=== PATIENT | male | born 1950 | race Caucasian/White ===

== ENCOUNTER 2017-03-01 13:04 | Inpatient (IN) | payer OTHER ==
[2017-03-01] MEDS ORDERED: NS 500 ML IV ONE (13:32)
[2017-03-01] MEDS ORDERED: ASPIRIN 81 MG CHEWABLE TAB PO ONE (13:32)
--- NOTE | 2017-03-01 13:35 | EDPHY ---
H & P Stated Complaint: 2 wks cough/fever/today noted mid sternal chest tightness Time Seen by Provider: 03/01/17 13:13 HPI/ROS: CHIEF COMPLAINT: Chest tightness HISTORY OF PRESENT ILLNESS: Patient is a 67-year-old healthy man who comes to the emergency department complaining of tightness in his chest for the last 8 hr. He states that he began this morning when he woke up. He has had a cough for the last 15 days and a fever that he got right before Master. He states that the symptoms have gradually improved. His cough is nonproductive. He does not feel short of breath. However today he noticed some achiness in his chest particularly when he takes a deep breath. He did fly to [place] and back around [place]. He has not had any leg pain or swelling. He does not smoke. He denies any cardiac history. No lightheadedness or dizziness. REVIEW OF SYSTEMS: Constitutional: denies: chills, fever, recent illness, recent injury EENTM: denies: blurred vision, double vision, nose congestion Respiratory: denies: cough, shortness of breath Cardiac: See HPI Gastrointestinal/Abdominal: denies: abdominal pain, diarrhea, nausea, vomiting, blood streaked stools Genitourinary: denies: dysuria, frequency, hematuria, pain Musculoskeletal: denies: joint pain, muscle pain Skin: denies: lesions, rash, jaundice, bruising Neurological: denies: headache, numbness, paresthesia, tingling, dizziness, weakness Hematologic/Lymphatic: denies: blood clots, easy bleeding, easy bruising Immunologic/allergic: denies: HIV/AIDS, transplant EXAM: GENERAL: Well-appearing, well-nourished and in no acute distress. HEAD: Atraumatic, normocephalic. EYES: Pupils equal round and reactive to light, extraocular movements intact, sclera anicteric, conjunctiva are normal. ENT: TMs normal, nares patent, oropharynx clear without exudates. Moist mucous membranes. NECK: Normal range of motion, supple without lymphadenopathy or JVD. LUNGS: Breath sounds clear to auscultation bilaterally and equal. No wheezes rales or rhonchi. HEART: Regular rate and rhythm without murmurs, rubs or gallops. ABDOMEN: Soft, nontender, normoactive bowel sounds. No guarding, no rebound. No masses appreciated. BACK: No CVA tenderness, no spinal tenderness, step-offs or deformities EXTREMITIES: Normal range of motion, no pitting or edema. No clubbing or cyanosis. NEUROLOGICAL: Cranial nerves II through XII grossly intact. Normal speech, normal gait. 5/5 strength, normal movement in all extremities, normal sensation PSYCH: Normal mood, normal affect. SKIN: Warm, dry, normal turgor, no visible rashes or lesions. Source: Patient Exam Limitations: No limitations - Personal History Current Tetanus/Diphtheria Vaccine: Unsure - Medical/Surgical History Hx Asthma: No Hx Chronic Respiratory Disease: No Hx Diabetes: No Hx Cardiac Disease: No Hx Renal Disease: No Hx Cirrhosis: No Hx Alcoholism: No Hx HIV/AIDS: No Hx Splenectomy or Spleen Trauma: No Other PMH: pericarditits, kidney stones. - Family History Significant Family History: No pertinent family hx - Social History Smoking Status: Never smoked Alcohol Use: Sober Drug Use: None Constitutional: Initial Vital Signs Temperature (C) 36.5 C 03/01/17 13:08 Heart Rate 74 03/01/17 13:08 Respiratory Rate 17 03/01/17 13:08 Blood Pressure 148/99 H 03/01/17 13:08 O2 Sat (%) 97 03/01/17 13:08 O2 Delivery Mode Room Air Allergies/Adverse Reactions: No Known Allergies Allergy (Verified 03/01/17 13:08) Home Medications: Medication Instructions Recorded Aspirin [Aspirin 325 mg (*)] 650 mg PO Q2D 03/01/17 Ibuprofen [Motrin (*)] 400 mg PO Q2D 03/01/17 Medical Decision Making - Diagnostics EKG Interpretation: An EKG obtained and was read and documented in trace view. Please see trace view for full reading and report. Nonspecific repolarization abnormality, no previous for comparison A repeat EKG obtained and was read and documented in trace view. Please see trace view for full reading and report. Large QRS with repolarization abnormality resolved Imaging Results: Imaging Impressions Chest X-Ray 03/01/17 13:32 Impression: 1. Suspect right lower lobe pneumonia. 2. Recommend follow up until clear. Findings and recommendations discussed with Emergency Department physician, Mk Snyder at 1454 hour, 03/01/2017. Final report concurs with initial preliminary interpretation. Imaging: Discussed imaging studies w/ survey manager Radiologist ED Course/Re-evaluation: 2:46 p.m. the patient has a history of pericarditis. He states that this feels somewhat similar to that time. I recommended admission for serial troponins echo etc. The patient agrees. He is currently feeling better. I discussed the case with Dr. Zita Armstrong who will admit to the PCU. Radiology he states that the patient might have an early right lower lobe pneumonia. This does not fit with his improving cough and resolving fever. We will observe. Differential Diagnosis: Partial list of the Differential diagnosis considered include but were not limited to; acute coronary disease, costochondritis, pericarditis and although unlikely based on the history and physical exam, I also considered PE, pneumonia. I discussed these differential diagnoses and the plan with the patient as well as the usual and expected course. The patient understands that the diagnosis is provisional and that in medicine we are not always correct and that further workup is often warranted. Usual and customary warnings were given. All of the patient's questions were answered. The patient was instructed to return to the emergency department should the symptoms at all worsen or return, otherwise to followup with the physician as we discussed. - Data Points Laboratory Results: Laboratory Results 03/01/17 13:41 03/01/17 13:41 03/01/17 03/01/17 03/01/17 13:41 13:41 13:41 WBC 8.03 10^3/uL 10^3/uL (3.80-9.50) RBC 4.52 10^6/uL 10^6/uL (4.40-6.38) Hgb 14.0 g/dL g/dL (13.7-17.5) Hct 40.9 % % (40.0-51.0) MCV 90.5 fL fL (81.5-99.8) MCH 31.0 pg pg (27.9-34.1) MCHC 34.2 g/dL g/dL (32.4-36.7) RDW 11.9 % % (11.5-15.2) Plt Count 266 10^3/uL 10^3/uL (150-400) MPV 9.4 fL fL (8.7-11.7) Neut % (Auto) 83.4 % H % (39.3-74.2) Lymph % (Auto) 10.3 % L % (15.0-45.0) [place] % (Auto) 5.9 % % (4.5-13.0) Eos % (Auto) 0.1 % L % (0.6-7.6) Baso % (Auto) 0.1 % L % (0.3-1.7) Nucleat RBC Rel Count 0.0 % % (0.0-0.2) Absolute Neuts (auto) 6.69 10^3/uL H 10^3/uL (1.70-6.50) Absolute Lymphs (auto) 0.83 10^3/uL L 10^3/uL (1.00-3.00) Absolute Monos (auto) 0.47 10^3/uL 10^3/uL (0.30-0.80) Absolute Eos (auto) 0.01 10^3/uL L 10^3/uL (0.03-0.40) Absolute Basos (auto) 0.01 10^3/uL L 10^3/uL (0.02-0.10) Absolute Nucleated RBC 0.00 10^3/uL 10^3/uL (0-0.01) Immature Gran % 0.2 % % (0.0-1.1) Immature Gran # 0.02 10^3/uL 10^3/uL (0.00-0.10) PT 14.8 SEC SEC (12.0-15.0) INR 1.14 (0.83-1.16) APTT 28.2 SEC SEC (23.0-38.0) D-Dimer 0.31 ug/mLFEU ug/mLFEU (0.00-0.50) Sodium 140 mEq/L mEq/L (134-144) Potassium 4.2 mEq/L mEq/L (3.5-5.2) Chloride 104 mEq/L mEq/L (97-110) Carbon Dioxide 25 mEq/l mEq/l (22-31) Anion Gap 11 mEq/L mEq/L (8-16) BUN 26 mg/dL H mg/dL (7-23) Creatinine 0.8 mg/dL mg/dL (0.7-1.3) Estimated GFR > 60 Glucose 164 mg/dL H mg/dL (70-100) Calcium 9.2 mg/dL mg/dL (8.5-10.4) Troponin I 0.066 ng/mL H ng/mL (0.000-0.034) Medications Given: Discontinued Medications Aspirin (Aspirin) 324 mg PO EDNOW ONE Stop: 03/01/17 13:33 Last Admin: 03/01/17 13:45 Dose: 324 mg Sodium Chloride (Ns) 500 mls @ 1,000 mls/hr IV EDNOW ONE PRN Reason: Protocol Stop: 03/01/17 14:01 Last Admin: 03/01/17 13:46 Dose: 500 mls Departure - Departure Disposition: [facility] Acute Clinical Impression: Chest pain in adult Condition: Fair
[2017-03-01] MEDS ORDERED: ASPIRIN 81 MG CHEWABLE TAB ONE (13:38)
[2017-03-01 13:51] LABS: PLATELET COUNT 266 10^3/uL (150-400)
--- NOTE | 2017-03-01 13:53 | CPEKG ---
Heart Rate: 71 RR Interval: 845 P-R Interval: 164 QRSD Interval: 94 QT Interval: 408 QTC Interval: 444 P [place]: 68 QRS [place]: 69 T Wave [place]: 28 EKG Severity - ABNORMAL ECG - EKG Impression: SINUS RHYTHM EKG Impression: NONSPECIFIC REPOL ABNORMALITY, DIFFUSE LEADS Electronically Signed By: Mk Snyder 01-Mar-2017 13:59:57
[2017-03-01 14:03] LABS: INR 1.14 (0.83-1.16); PROTIME(PATIENT) 14.8 SEC (12.0-15.0)
--- NOTE | 2017-03-01 14:35 | CPEKG ---
Heart Rate: 68 RR Interval: 882 P-R Interval: 156 QRSD Interval: 94 QT Interval: 416 QTC Interval: 443 P [place]: 57 QRS [place]: 58 T Wave [place]: 33 EKG Severity - NORMAL ECG - EKG Impression: SINUS RHYTHM Electronically Signed By: Mk Snyder 01-Mar-2017 15:52:33
[2017-03-01] MEDS ORDERED: ONDANSETRON 4 MG/2 ML VIAL IVP PRN (15:39)
[2017-03-01] MEDS ORDERED: ACETAMINOPHEN 325 MG TAB PO PRN (15:39)
[2017-03-01] MEDS ORDERED: ONDANSETRON DISINTEGRATING 4 MG TAB PO PRN (15:39)
--- NOTE | 2017-03-01 16:06 | GHP ---
[f rep st] HISTORY AND PHYSICAL DATE OF ADMISSION: 03/01/2017 CHIEF COMPLAINT: Chest pressure. HISTORY OF PRESENT ILLNESS: This is a 67-year-old male, who is quite healthy. He has had a 2-week h istory of an upper respiratory tract infection, mostly runny nose at this point. This morning, he de veloped some chest tightness that was pleuritic. It is not positional. It is not associated with sh ortness of breath, diaphoresis, or nausea. He was able to go climbing today without much problem, th ough he did not feel completely right. He has not had any decrease in exercise tolerance. He usuall y runs a couple of times a week, doing intervals as well as climbing pretty regularly. The patient has a history of pericarditis in 1989. He says that this feels similar to that. REVIEW OF SYSTEMS: A 10-point review of systems was obtained and other than stated was negative. PAST MEDICAL HISTORY: 1. Pericarditis. 2. Arthritis. 3. Kidney stones. MEDICATIONS: Reviewed. SOCIAL HISTORY: No smoking, quite active. FAMILY HISTORY: Mother with breast cancer, but no early cardiac disease. PHYSICAL EXAM: VITAL SIGNS: Afebrile, blood pressure 142/88, heart rate 68, oxygen saturation 97% o n room air. GENERAL: Patient is well developed, no apparent distress. HEENT: Nonicteric sclerae. Extraocular movements intact. Moist mucous membranes. NECK: Supple. No thyromegaly. LUNGS: Goo d effort. Clear to auscultation bilaterally. CARDIOVASCULAR: Regular rate and rhythm. No murmurs, rubs, gallops. ABDOMEN: Positive bowel sounds. Soft, nontender, nondistended. No hepatosplenomeg steven. EXTREMITIES: No clubbing, cyanosis, or edema. SKIN: Without rash. Warm, dry, intact. NEURO LOGIC: Alert and oriented x3. Moving all 4 extremities equally. PSYCHIATRIC: Normal affect. LABS: Initial EKG shows ST-segment depressions in the lateral leads. Chest x-ray personally reviewe d and interpreted, with suspicion of right lower lobe pneumonia. Troponin is elevated at 0.066. Inf luenza is still pending. ASSESSMENT: A 67-year-old male, presenting with a previous history of pericarditis presenting with c hest pain at the tail end of an upper respiratory tract infection. PLAN: 1. Chest pain with slightly elevated troponin. I think his symptoms are more consistent with perica rditis. He is actually quite healthy without any cardiac risk factors. He has not had decrease in e xercise tolerance. Plan will be to monitor him overnight. Will check serial troponin to make sure t hat they remain flat. I am going to start anti-inflammatories and colchicine. Will check an echocar diogram as well. 2. Questionable right lower lobe pneumonia. Patient is not having any cough. His lung exam is yuliet r. He has no elevated white blood cell count. I am going to hold off on antibiotics at this time. /[id number]/MODL
[2017-03-01] MEDS: IBUPROFEN 600 MG TAB PO SCH ×2 (17:46→22:30)
[2017-03-01] MEDS: COLCHICINE 0.6 MG CAP/TAB PO SCH (17:46)
--- NOTE | 2017-03-02 08:21 | CPEKG ---
Heart Rate: 64 RR Interval: 938 P-R Interval: 156 QRSD Interval: 90 QT Interval: 424 QTC Interval: 438 P [place]: 58 QRS [place]: 53 T Wave [place]: 27 EKG Severity - NORMAL ECG - EKG Impression: SINUS RHYTHM Electronically Signed By: Tyrell Ba 02-Mar-2017 16:18:47
[2017-03-02] MEDS: COLCHICINE 0.6 MG CAP/TAB PO SCH (09:01)
[2017-03-02] MEDS: IBUPROFEN 600 MG TAB PO SCH (09:01)
--- NOTE | 2017-03-02 11:27 | ASMTCASEMG ---
Living Arrangements What is your living Answers: Alone arrangement? Who do you live with? Type Of Residence What kind of residence do Answers: House you live in? Discharge Plan Comments Coordination Status Comments Notes: Pt is a 67 y/o man admitted for chest pain. Pt will most likely d/c independent when medically stable. No therapies ordered at this time. CM available for changes. Plan: Independent Date Signed: 03/02/2017 11:26 AM Electronically Signed By:BALDEV Leal
--- NOTE | 2017-03-02 12:02 | HOSPPROG ---
Hospitalist Progress Note Assessment/Plan: 67 yo M w minimal PMH here w CP, lateral ST depression NSTEMI: lateral ST depressions that have normalized alomg w reduction in CP no heparin given normalization of cp and wkg start asa cardiology to see echo ordered NPO now, ate at 11 follow trop to peak pericarditis: unlikely dc meds bradycardia: jilley 2/2 physical fitmess dispo: inpt proph: lmwh Subjective: case d/w jose smith, cardiology PA. no further CP Objective: Vital Signs Temp Pulse Resp BP Pulse Ox 36.7 C 58 L 16 144/84 H 96 03/02/17 07:25 03/02/17 07:25 03/02/17 07:25 03/02/17 07:25 03/02/17 07:25 03/01/17 03/02/17 03/03/17 05:59 05:59 05:59 Intake Total 1250 Balance 1250 PT 14.8 SEC (12.0-15.0) 03/01/17 13:41 INR 1.14 (0.83-1.16) 03/01/17 13:41 - Physical Exam Constitutional: no apparent distress, appears nourished Eyes: PERRL, anicteric sclera Ears, Nose, Mouth, Throat: moist mucous membranes, hearing normal Cardiovascular: regular rate and rhythym, no murmur, rub, or gallop, No systolic murmur Respiratory: no respiratory distress, no rales or rhonchi Gastrointestinal: normoactive bowel sounds, soft, non-tender abdomen Genitourinary: no bladder fullness, No garcia in urethra Skin: warm, normal color Musculoskeletal: full muscle strength, no muscle tenderness Neurologic: AAOx3 Psychiatric: interacting appropriately ICD10 Worksheet Patient Problems: Problems Problem Status Onset Chest pain in adult Acute
[2017-03-02] MEDS: ASPIRIN EC 325 MG TAB PO SCH (12:13)
--- NOTE | 2017-03-02 12:15 | ECHO ---
[email or web address] [address] [address] Main: [phone] Fax: [email or web address] Echocardiogram Name: DUYEN CARRANZA MR#: [id number] Study Date: 03/01/2017 Study Time: 03:53 PM Date of : 1950 Age: 67 year(s) Height: 175.3 cm (69 in.) Weight: 72.58 kg (160 lb.) BSA: 1.88 m2 Gender: Male Examination: Echo Indication: Question pericarditis Image Quality: Contrast: Requested by: Bob Armstrong BP: 164 mmHg/102 mmHg Heart Rate: Rhythm: Indication: Question pericarditis Procedure Staff Gum Dipper: Luzmaria Starks Physician: Kris Miguel Requesting Provider: Conclusions: Left Ventricle: Normal size left ventricle. Normal global systolic LV function. The ejection fraction is estimated to be 65-70 %. The right atrium is borderline dilated. Mild mitral valve regurgitation is present. Minimal aortic cusp calcification is noted. Mild tricuspid regurgitation is present. Measurements: Chambers Valvular Assessment AV/MV Valvular Assessment TV/PV Normal Normal Normal Name Value Range Name Value Range Name Value Range IVSd (2D): 0.5 cm (0.6 cm-1.1 AV Vmax: 1.21 m/s (1 m/s-1.7 cm) m/s) LVDd (2D): 5.9 cm (4.2 cm-5.9 AV maxP mmHg ( - ) cm) AV meanP mmHg ( - ) LVDs (2D): 3.6 cm (2.1 cm-4 MV E Vmax: 0.58 m/s ( - ) cm) MV A Vmax: 0.71 m/s ( - ) LVPWd (2D): 0.8 cm (0.6 cm-1 MV E/A: 0.82 ( - ) cm) EF Range: 65-70 % Continued Measurements: Chambers Valvular Assessment AV/MV Name Value Name Value LADs: 3.3 cm MV E/E' Septal: 10.50 LADs Lon.0 cm MV E/E' Lateral: 9.90 Patient: DUYEN CARRANZA Study Date: 03/01/2017 Page 1 of 2 03:53 PM LA Area: 14.3 cm2 Findings: Left Ventricle: Normal size left ventricle. No LV hypertrophy. Normal global systolic LV function. The ejection fraction is estimated to be 65-70 %. No regional wall motion abnormality. Right Ventricle: Normal size right ventricle. Left Atrium: The left atrium is normal in size. Right Atrium: The right atrium is borderline dilated. Mitral Valve: The mitral valve is normal in appearance and function. Mild mitral valve regurgitation is present. Aortic Valve: Minimal aortic cusp calcification is noted. Tricuspid Valve: The tricuspid valve is normal in appearance and function. Mild tricuspid regurgitation is present. Pulmonic Valve: Pulmonary valve not well visualized. Aorta: The aorta is normal. Pericardium: No pericardial effusion. (No Signature Object) Patient: DUYEN CARRANZA Study Date: 03/01/2017 Page 2 of 2 03:53 PM [id number]
[2017-03-02] MEDS ORDERED: diphenhydrAMINE 25 MG CAP PO ONE (13:01)
[2017-03-02] MEDS ORDERED: ASPIRIN EC 325 MG TAB PO ONE (13:01)
[2017-03-02] MEDS ORDERED: DIAZEPAM 5 MG TAB PO ONE (13:01)
[2017-03-02] MEDS ORDERED: ACETAMINOPHEN 325 MG TAB PO PRN (13:01)
[2017-03-02] MEDS ORDERED: TEMAZEPAM 15 MG CAP PO PRN (13:01)
[2017-03-02] MEDS ORDERED: FAMOTIDINE 20 MG TAB PO ONE (13:01)
[2017-03-02] MEDS ORDERED: NITROGLYCERIN 0.4 MG BTL SL PRN (13:01)
[2017-03-02] MEDS ORDERED: NS 1,000 ML IV SCH ×2 (13:15→16:15)
--- NOTE | 2017-03-02 13:56 | GCON ---
[f rep st] CONSULTATION CARDIOLOGY CONSULTATION DATE OF CONSULTATION: 03/02/2017 REASON FOR CONSULTATION: We were asked by Dr. Landry Bailey of [facility] to evaluate the new berry for his abnormal EKG, chest pain and elevated troponin worrisome for NSTEMI. HISTORY OF PRESENT ILLNESS: The patient is a 67-year-old male with a history of pericarditis in 1989 but otherwise healthy, who reports 16 days of antecedent upper respiratory infection symptoms most n otably sinus congestion. On day of admission, he noted a midsternal chest heaviness while at work at approximately 10 a.m. He describes it as mild to moderate in intensity without associated nausea, d iaphoresis, or dyspnea. At lunch time, he decided to go to the climbing gym for his typical work out . With his climbs, he noted that he would have significant worsening of his chest discomfort to mode rate to severe level. He therefore stopped exercise and presented to the emergency department for fu rther evaluation. At that time, he was found to have a minimally elevated troponin at 0.066. His EK G was abnormal with diffuse ST-T wave abnormalities. He was therefore admitted for further observati on. At time of our interview, patient reports that he is chest pain-free. He denies any other episodes o f chest discomfort recently. Other than his upper respiratory illness, he has not noted any other vi ral symptoms. He does describe noting slight worsening of his chest discomfort yesterday upon deep i nspiration. REVIEW OF SYSTEMS: A 10-point review of systems was obtained and is negative except for what is dict ated. PAST MEDICAL HISTORY: 1. Pericarditis. 2. Arthritis. 3. Kidney stones. 4. BPH. PAST SURGERIES: None. SOCIAL HISTORY: Patient reports 1 alcoholic beverage most nights of the week. He denies any signifi cant history of tobacco intake. At age 14, he had smoked for 6 months. He is . FAMILY HISTORY: Positive for breast cancer. PHYSICAL EXAMINATION: VITAL SIGNS: BP of 157/92, heart rate of 60, respirations 16, O2 saturation 9 6% on room air, temp of 98.1 degrees Fahrenheit. GENERAL: He is a very pleasant male in no apparent distress. HEENT: Normocephalic atraumatic. Eyes are without scleral icterus. NECK: Supple with no JVD. No carotid bruit. HEART: Regular rate and rhythm with no rubs, gallops, or murmurs. LUNGS : Clear to auscultation. ABDOMEN: Nontender with normoactive bowel sounds. : Without Storm pre sent. SKIN: Warm and dry. PSYCH: Normal mood and affect. NEURO: No focal deficits detected. LABORATORIES: BMP with sodium 140, potassium 4.2, chloride 104, CO2 25, BUN 26, creatinine 0.8, gluc ose 164, troponin 0.066, then 0.7, then 1.4. CBC with WBC 8.3, hemoglobin 14, hematocrit 40.9, platelet count of 266. A 12-lead ECG personally interpreted from 03/02/2017, shows sinus rhythm with mild inferolateral ST a bnormality, 03/01/2017 EKG from [address] depression. Telemetry reviewed and no arrhythmias were seen. 03/01/2017 echocardiogram shows EF of 65-70, dilated right atrium, mild MR, mild TR. IMPRESSION AND PLAN: The patient is a 67-year-old male with no significant past medical history who presents with episode of chest discomfort worrisome for non-ST elevation myocardial infarction. 1. Non-ST elevation myocardial infarction. He has elevated troponin. EKG changes and chest pain wo rrisome for non-ST elevation myocardial infarction. Patient's options were reviewed with him and he is amenable to cardiac catheterization for further evaluation. Risks, benefits, and alternatives rev iewed. 2. Elevated blood pressure. Likely he will need to be started on medical therapy for this. 3. Hyperglycemia. Hemoglobin A1c will be obtained. More recommendations to follow cardiac catheter ization. /[id number]/MODL
[2017-03-02 14:01] LABS: PLATELET COUNT 293 10^3/uL (150-400)
[2017-03-02 14:15] LABS: INR 1.06 (0.83-1.16)
[2017-03-02] MEDS ORDERED: MIDAZOLAM 2 MG/2 ML VIAL ONE (14:41)
[2017-03-02] MEDS ORDERED: LIDOCAINE 1% 300 MG/30 ML SDV ONE (14:41)
[2017-03-02] MEDS ORDERED: fentaNYL 100 MCG/2 ML INJ ONE (14:41)
[2017-03-02] MEDS ORDERED: IOPAMIDOL (ISOVUE-370) 150 ML BTL IV ONE (14:41)
--- NOTE | 2017-03-02 14:56 | PDPROPOC ---
Sedation Plan of Care Sedation Plan of Care: vital signs stable, mental status noted, patient educated of risks, benefits, alternatives, patient can tolerate sedation ASA Classification: ASA 3 Planned drugs: fentanyl, midazolam Mallampati Score: Class 3 Mallampati Reference Image: Patient passed 3-3-2 rule?: Yes
--- NOTE | 2017-03-02 14:57 | PDHPUP ---
History & Physical Update H&P update statement: This history and physical update is based on an assessment of the patient which was completed after admission or registration (within 24 hours), but prior to the surgery/procedure. H&P update: H&P reviewed & patient examined, no change in patient's condition since H&P completed
--- NOTE | 2017-03-02 15:06 | PDDXCAT ---
Diagnostic Cath Note - . Date: 03/02/17 Industrial Waste Treatment Technician: Niharika Indication: CCC Class III and IV angina on medical treatment - Procedure Access: right wrist - Materials Left Heart Cath size: 5F Left Heart Cath materials: standard multipack (JL4, JR4, pigtail) - Findings-Left Heart Catheterization LM: It is 4mm in size and long. There is no flow limiting obstruction. LAD: There are luminal irregularities consistent with atherosclerosis. The maximal luminal stenosis is approximately 30% after the third diagonal takeoff. There is MAGALIE III flow throughout. No flow limiting obstruction identified. LCX: There is a vestigual left circumflex, see RCA description. RCA: It is 3mm in size and super dominant. It gives rise to the PDA and a posteriolateral ventricular branch and continues into the posterior AV groove in a distribution of the normal LCX. It ultimately gives rise to a left atrial branch. There is a 99% obstruction of the proximal RCA with decreased contrast density suggestive of thrombus with MAGALIE III flow distally. EDP: LVEDP 14mmHg. LVEF: There is global reduction in the LV systolic function. The EF is 45%. Wall motion: There is basal inferior wall hypokinesis consistent with subendocardial myocardial infarction. Complications: None. 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 There was a 99% occlusion at the RCA that required stenting. There was 5% post stent residual stenosis. Plan: Dual antiplatelet therapy with Aspirin 325mg for the first month followed by Aspirin 81mg along with Plavix 75mg daily should be continued for at least 1 year following drug eluting stent implantation. No elective surgery for the first 3 months. Decisions to stop dual antiplatelet therapy before 1 year should involve our office at [facility], . The patient needs control of systemic hypertension with a beta jordana and RHODA inhibitor regimen. Statin therapy to achieve a non-HDL cholesterol less than 100mg/dL. Intervention: A 6 Kisw[place]ili JR4 side holes Launcher was used for guide catheter support. An 0.014 Intuition wire was advanced across the lesion in question under direct fluoroscopic and angiographic guidance. The 99% lesion of the RCA was then primarily stented with a Synergy 3.0 x 16mm [employer] drug eluting stent. The post stent residual stenosis was 5%. There was MAGALIE III flow pre and post stent implantation. Post dilation was achieved with a [place] Emerge 3.5 x 8mm balloon at high pressure. Patient Problems: Problems Problem Status Onset Chest pain in adult Acute
[2017-03-02] MEDS ORDERED: NITROGLYCERIN 1,500 MCG/15 ML VIAL MISC ONE (15:13)
--- NOTE | 2017-03-02 15:29 | PDMN ---
Medical Necessity Medical necessity: NSTEMI EKG changes, chest pain req further eval and tx > 2 midnights
[2017-03-02] MEDS ORDERED: PRASUGREL HCL 10 MG TAB ONE (15:36)
[2017-03-02] MEDS ORDERED: HEPARIN 10,000 UNIT/10 ML MDV ONE (15:49)
[2017-03-02] MEDS ORDERED: VERAPAMIL 5 MG/2 ML VIAL ONE (15:49)
--- NOTE | 2017-03-02 15:58 | CPEKG ---
Heart Rate: 51 RR Interval: 1176 P-R Interval: 176 QRSD Interval: 90 QT Interval: 488 QTC Interval: 450 P [place]: 48 QRS [place]: 42 T Wave [place]: 1 EKG Severity - NORMAL ECG - EKG Impression: SINUS RHYTHM Electronically Signed By: Tyrell Ba 02-Mar-2017 16:18:42
[2017-03-02] MEDS ORDERED: ATROPINE SULFATE 1 MG/10 ML SYR IVP PRN (16:03)
[2017-03-02] MEDS ORDERED: PRASUGREL HCL 10 MG TAB PO ONE (16:03)
[2017-03-03] MEDS: PRASUGREL HCL 10 MG TAB PO SCH (08:53)
[2017-03-03] MEDS: ASPIRIN EC 325 MG TAB PO SCH (08:53)
[2017-03-03] MEDS: LISINOPRIL 2.5 MG TAB PO SCH (10:46)
[2017-03-03] MEDS: ATORVASTATIN CALCIUM 20 MG TAB PO SCH (10:47)
--- NOTE | 2017-03-03 11:31 | HOSPPROG ---
Hospitalist Progress Note Assessment/Plan: 67 yo M w minimal PMH here w CP, lateral ST depression NSTEMI: lateral ST depressions that have normalized alomg w reduction in CP s/p rca stent w peak trop 1.5 and no WMA on echo asa/prasugrel/statin/domenic-1 pericarditis: unlikely dc meds bradycardia: likley 2/2 physical fitness dispo: inpt proph: lmwh Subjective: no CP. RCA stent yesterday. case d/w dr hoffman. tele: no VT Objective: Vital Signs Temp Pulse Resp BP Pulse Ox 36.7 C 59 L 12 123/86 H 97 03/03/17 07:13 03/03/17 07:13 03/03/17 07:13 03/03/17 07:13 03/03/17 07:13 03/02/17 03/03/17 03/04/17 05:59 05:59 05:59 Intake Total 950 Balance 950 PT 14.0 SEC (12.0-15.0) 03/02/17 13:50 INR 1.06 (0.83-1.16) 03/02/17 13:50 - Physical Exam Constitutional: no apparent distress, appears nourished Eyes: PERRL, anicteric sclera Ears, Nose, Mouth, Throat: moist mucous membranes, hearing normal Cardiovascular: regular rate and rhythym, systolic murmur Respiratory: no respiratory distress, no rales or rhonchi Gastrointestinal: normoactive bowel sounds, soft, non-tender abdomen Genitourinary: no bladder fullness, garcia in urethra Skin: warm, normal color Musculoskeletal: full muscle strength Neurologic: AAOx3 ICD10 Worksheet Patient Problems: Problems Problem Status Onset Chest pain in adult Acute chronic disease mgmt/transitional care Acute
--- NOTE | 2017-03-03 13:56 | PDCARPN ---
Cardiology Progress Note Chief Complaint: S/p stent to RCA Assessment/Plan: Assessment: The patient presented to the ED with chest pain. EKG showed diffuse ST-T wave abnormalities. 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 There was a 99% occlusion at the RCA that required stenting. There was 5% post stent residual stenosis. On re-evaluation today the patient is feeling well. No complaints of chest pain/pressure/tightness. He will continues with Lipitor and dual antiplatelet therapy. Plan: Dual antiplatelet therapy with Aspirin 325mg for the first month followed by Aspirin 81mg along with Plavix 75mg daily should be continued for at least 1 year following drug eluting stent implantation. No elective surgery for the first 3 months. Decisions to stop dual antiplatelet therapy before 1 year should involve our office at [facility], . The patient needs control of systemic hypertension with a beta jordana and RHODA inhibitor regimen. Statin therapy to achieve a non-HDL cholesterol less than 100mg/dL. 03/03/17 13:56 Subjective: The patient is feeling fine and has not experienced chest discomfort. Time Spent With Patient: 15 minutes Objective: Vital Signs (8 Hrs) Temp Pulse Resp BP Pulse Ox 03/03/17 12:00 37.1 C 63 18 133/84 H 96 03/03/17 07:13 36.7 C 59 L 12 123/86 H 97 Intake/Output (24 Hrs) 03/02/17 03/03/17 03/04/17 05:59 05:59 05:59 Intake Total 950 Balance 950 Intake: Oral (ml) 250 IV Intake (ml) 700 Other: Intake Quantity Yes Sufficient Number of Voids Toilet 2 Result Diagrams: 03/02/17 13:50 03/02/17 13:50 Cardiac Labs: Cardiac Lab Results (72 Hrs) 03/03/17 10:12 Troponin I 1.510 H EKG: Lateral ST depressions that have normalized. Telemetry: normal sinus rhythm Echocardiogram: Echo performed yesterday showed EF 65-70%. There is mild TR and mild mitral valve regurgitation. No wall motion abnormalities seen. - Physical Exam Constitutional: WDWN Eyes: PERRL, EOMI Ears, Nose, Mouth, Throat: moist mucous membranes Cardiovascular: regular rate and rhythm Respiratory: clear to auscultate bilat Gastrointestinal: normoactive bowel sounds Skin: no rashes Neurologic: AAOx3 - Images Hands Front Left/Right: 1 - patient with small hematoma related to sheath insertion site no distal neurovascular compromise normal pulse and capillary refill. - . Pending Discharge Within 24 Hours: Yes Pending Discharge Within 48 Hours: No ICD10 Worksheet Patient Problems: Problems Problem Status Onset Chest pain in adult Acute chronic disease mgmt/transitional care Acute
[2017-03-04 08:16] VITALS: BP 124/80; PULSE 65; RESP 18; TEMP 98.4; O2SAT 97
--- NOTE | 2017-03-04 09:09 | HOSPPROG ---
Hospitalist Progress Note Assessment/Plan: 67 yo M w minimal PMH here w CP, lateral ST depression NSTEMI: lateral ST depressions that have normalized alomg w reduction in CP s/p rca stent w peak trop 1.5 and no WMA on echo asa/prasugrel/statin/domenic-1 pericarditis: unlikely dc meds bradycardia: likley 2/2 physical fitness dispo:home today > 30 minutes proph: lmwh Subjective: no VT on tele. anxious for dc Objective: Vital Signs Temp Pulse Resp BP Pulse Ox 36.9 C 65 18 124/80 H 97 03/04/17 08:00 03/04/17 08:00 03/04/17 08:00 03/04/17 08:00 03/04/17 08:00 03/03/17 03/04/17 03/05/17 05:59 05:59 05:59 Intake Total 950 890 Balance 950 890 PT 14.0 SEC (12.0-15.0) 03/02/17 13:50 INR 1.06 (0.83-1.16) 03/02/17 13:50 - Physical Exam Constitutional: no apparent distress, appears nourished Eyes: PERRL, anicteric sclera Ears, Nose, Mouth, Throat: moist mucous membranes, hearing normal Cardiovascular: regular rate and rhythym, no murmur, rub, or gallop Respiratory: no respiratory distress, no rales or rhonchi Gastrointestinal: normoactive bowel sounds, soft, non-tender abdomen Genitourinary: no bladder fullness, No garcia in urethra Skin: warm, normal color Musculoskeletal: full muscle strength, no muscle tenderness Neurologic: AAOx3, sensation intact bilaterally Psychiatric: interacting appropriately, not anxious Lymph, Heme, Immunologic: no cervical LAD ICD10 Worksheet Patient Problems: Problems Problem Status Onset Chest pain in adult Acute chronic disease mgmt/transitional care Acute
[2017-03-04] MEDS: ASPIRIN EC 325 MG TAB PO SCH (09:16)
[2017-03-04] MEDS: PRASUGREL HCL 10 MG TAB PO SCH (09:16)
[2017-03-04] MEDS: ATORVASTATIN CALCIUM 20 MG TAB PO SCH (09:17)
[2017-03-04] MEDS: LISINOPRIL 2.5 MG TAB PO SCH (09:17)
--- NOTE | 2017-03-04 10:35 | PDCARPN ---
Cardiology Progress Note Chief Complaint: NSTEMI Assessment/Plan: Assessment: 67M with no significant PMH p/w cp and found to have NSTEMI. #. NSTEMI: s/p PCI to subtotal RCA DAPT for 1 year start Atorvastatin started on low-dose Lisinopril #. dyslipidemia: LDL 112 repeat lipids in 6 weeks #. elevated BP: started on low dose Lisinopril monitor bradycardia contraindicates starting BB Plan: - Counseled pt on DAPT - OK to d/c from cardiology perspective 03/04/17 10:31 Subjective: No complaints. Objective: Vital Signs (8 Hrs) Temp Pulse Resp BP Pulse Ox 03/04/17 08:00 98.4 F 65 18 124/80 H 97 03/04/17 04:00 98.2 F 74 16 113/64 96 Intake/Output (24 Hrs) 03/03/17 03/04/17 03/05/17 05:59 05:59 05:59 Intake Total 950 890 Balance 950 890 Intake: Oral (ml) 250 890 IV Intake (ml) 700 Other: Intake Quantity Yes Sufficient Number of Voids Toilet 2 2 Result Diagrams: 03/02/17 13:50 03/02/17 13:50 Cardiac Labs: Cardiac Lab Results (72 Hrs) 03/03/17 10:12 Troponin I 1.510 H - Physical Exam Constitutional: healthy appearing, no apparent distress Ears, Nose, Mouth, Throat: moist mucous membranes Cardiovascular: regular rate and rhythm ICD10 Worksheet Patient Problems: Problems Problem Status Onset Chest pain in adult Acute chronic disease [facility]/transitional care Acute
--- NOTE | 2017-03-04 12:33 | ASDISCHSUM ---
Discharge Information Plan Status:Home with No Needs Medically Cleared to Leave:03/03/2017 Discharge Date:03/04/2017 11:24 AM CM D/C Disposition: ADT D/C Disposition:Home, Routine, Self-Care Projected Discharge Date:03/04/2017 12:00 AM Transportation at D/C: Discharge Delay Reason: Follow-Up Date:03/04/2017 12:00 AM Discharge Slot: Final Diagnosis: Placement Information Patient Contact Information Contact Name:CHRISTA Relationship:Abdullahi Address:[address] Home Phone: City:[place] Alternate Phone: State/Zip Code:[place] [address] Email: Financial Information Financial Class: Primary Plan Desc:MEDICARE INPATIENT Primary Plan Number:[id number] Secondary Plan Desc: Secondary Plan Number: Assessment Information [facility] Initial CM Assessment Living Arrangements What is your living Answers: Alone arrangement? Who do you live with? Type Of Residence What kind of residence do Answers: House you live in? Discharge Plan Comments Coordination Status Comments Notes: Pt is a 67 y/o man admitted for chest pain. Pt will most likely d/c independent when medically stable. No therapies ordered at this time. CM available for changes. Plan: Independent Date Signed: 03/02/2017 11:26 AM Electronically Signed By:BALDEV Leal Intervention Information
--- NOTE | 2017-03-04 16:21 | ECHO ---
[email or web address] [address] [address] Main: [phone] Fax: Transthoracic Echocardiogram Name: DUYEN CARRANZA MR#: [id number] Study Date: 03/03/2017 Study Time: 09:48 AM Date of : 1950 Age: 67 year(s) Height: 175.3 cm (69 in.) Weight: 72.58 kg (160 lb.) BSA: 1.88 m2 Gender: Male Examination: Limited Echo Indication: NSTEMI/check EF Image Quality: Contrast: Requested by: Sola Menendez BP: 123 mmHg/86 mmHg Heart Rate: Rhythm: Indication: NSTEMI/check EF Procedure Staff Senior Media Buyer: Luzmaria Freitas Reading Physician: Kris Miguel Requesting Provider: Conclusions: Normal size left ventricle. The ejection fraction is estimated to be 60-65 %. LV basal inferior wall is akinetic. All remaining LV segments have normal motion.. The right atrium is borderline dilated. Minimal aortic cusp calcification is noted. The tricuspid valve appears normal. Measurements: Chambers Valvular Assessment AV/MV Valvular Assessment TV/PV Normal Normal Normal Name Value Range Name Value Range Name Value Range LVEF (BP): 66 % (>=55 %) EF Range: 60-65 % Continued Measurements: Findings: Left Ventricle: Normal size left ventricle. The ejection fraction is estimated to be 60-65 %. LV basal inferior wall is akinetic. All remaining LV segments have normal motion.. Left Atrium: The left atrium is normal in size. Right Atrium: The right atrium is borderline dilated. Mitral Valve: The mitral valve is normal in appearance. Mild mitral valve regurgitation is present. Aortic Valve: Minimal aortic cusp calcification is noted. Patient: DUYEN CARRANZA Study Date: 03/03/2017 Page 1 of 2 09:48 AM Tricuspid Valve: The tricuspid valve appears normal. Pulmonic Valve: Pulmonary valve not well visualized. Pericardium: No pericardial effusion. (No Signature Object) Patient: DUYEN CARRANZA Study Date: 03/03/2017 Page 2 of 2 09:48 AM [id number]
--- NOTE | 2017-03-04 22:05 | GDS ---
[f rep st] DISCHARGE SUMMARY DISCHARGE DIAGNOSES: 1. Non ST-elevation myocardial infarction. 2. Coronary artery disease. 3. Hyperlipidemia. PROCEDURES DURING THIS ADMISSION: Cardiac catheterization with stent placement in the right coronary artery. Echocardiogram showed normal EF. HOSPITAL COURSE: The patient presented with chest pain. He is an active, fit 67-year-old. It felt like his previous episode of pancreatitis. This was considered. However, his troponin ra relative ly rapidly from 0.066 to 1.4, peaked at 1.9. He had lateral ST depressions, which are not consistent with pericarditis that resolved with resolution of his chest pain. He went to the earthmoving labourer, which d emonstrated 99% proximal right coronary artery that was stented. He had a large dominant right coron alondra artery that did supply some of the left side distally, hence his left-sided EKG changes. The pat ient did well postoperatively with no risks complications. He is discharged home on aspirin, Effient, as well as an RHODA inhibitor, and a statin. He is to [facility]. /[id number]/MODL
== END 2017-03-04 11:24 | disposition home or self-care (01) | DRG 247 ==
LOC: F2W 17:20 → OBSVTOIN 03-02 14:56
PROVIDERS: ADMIT Internal Medicine; ATTEND Internal Medicine
PROC: 027034Z Dilation of Coronary Artery, One Artery with Drug-eluting Intraluminal Device, Percutaneous Approach (ICD-10-PCS; principal; 2017-03-02)
PROC: 4A023N7 Measurement of Cardiac Sampling and Pressure, Left Heart, Percutaneous Approach (ICD-10-PCS; principal; 2017-03-02)
DX: I21.4 Non-ST elevation (NSTEMI) myocardial infarction (principal); I25.10 Atherosclerotic heart disease of native coronary artery without angina pectoris; E78.5 Hyperlipidemia, unspecified; Z80.3 Family history of malignant neoplasm of breast
CPT/HCPCS: C1725; C1769; C1874; C1887; C9600; C9606; G0378; J1644; J2250; J3010; Q9967

== ENCOUNTER 2018-06-14 14:24 | Emergency (ER) | payer OTHER, MEDICARE ==
[2018-06-14 15:46] LABS: PLATELET COUNT 156 10^3/uL (150-400)
--- NOTE | 2018-06-14 15:53 | EDPHY ---
H & P Stated Complaint: URTI sx x 2 days, nasal congesetion Time Seen by Provider: 06/14/18 14:55 HPI/ROS: CHIEF COMPLAINT: I think I have a bad head cold HISTORY OF PRESENT ILLNESS: This is a 68-year-old male presents emergency department reporting that for the last 36 hr he has had nasal congestion. He thinks he has a low-grade fever. No cough, no sore throat, no significant headache. He took a decongestant yesterday but was unclear that helped much. Patient reports 6 days ago he woke in the morning with some dizziness. [place] weak and tired the rest of the day. Episode of dizziness lasted about an hour and patient describes this feeling off balance. No syncope. The next day he felt normal. Yesterday he again developed a sensation of being tired, fatigued, and nasal congestion. He is not dizzy. Denies any chest pain, palpitations, vertigo symptoms, cough, or shortness of breath. No fever, chills, chest pain, shortness of breath, palpitations, vomiting, diarrhea, urinary complaints, headache, lightheadedness. REVIEW OF SYSTEMS: A comprehensive 10 system review of systems was reviewed and is otherwise negative aside from elements mentioned in the history of present illness and medical decision making. PAST MEDICAL HISTORY: Coronary artery disease with a stent placed, history of pericarditis. SOCIAL HISTORY: Nonsmoker. VITAL SIGNS: see nurse's notes. GENERAL: Well-developed, well-nourished, in no acute distress. Sounds slightly congested. HEENT: Atraumatic Eyes: PERRL, EOMI, no conjunctival injection. Ears: TM clear bilaterally. Nose: No discharge. Mouth: moist mucous membranes. Pharynx: no erythema, no exudates, no swelling, no abscess. Uvula is midline. NECK: Supple, no adenopathy, no meningismus, no tenderness. Negative Kernig's and Brudzinski's. LUNGS: Clear to auscultation bilaterally, no wheezes, rhonchi or rales. CARDIAC: Regular rate and rhythm, no rubs, murmurs or gallops. ABDOMEN: Soft, nontender, bowel sounds normal. BACK: No CVA tenderness. EXTREMITIES: Normal, no edema, FROM. NEURO: Alert and oriented, grossly nonfocal. SKIN: Warm and dry, no rash. PSYCHIATRIC: Normal mentation, no agitation. - Personal History Current Tetanus/Diphtheria Vaccine: Unsure Current Tetanus Diphtheria and Acellular Pertussis (TDAP): Unsure - Medical/Surgical History Hx Asthma: No Hx Chronic Respiratory Disease: No Hx Diabetes: No Hx Cardiac Disease: Yes Hx Renal Disease: No Hx Cirrhosis: No Hx Alcoholism: No Hx HIV/AIDS: No Hx Splenectomy or Spleen Trauma: No Other PMH: pericarditits, kidney stones, DE. - Social History Smoking Status: Never smoked Constitutional: Initial Vital Signs Temperature (C) 37 C 06/14/18 14:27 Heart Rate 72 06/14/18 14:27 Respiratory Rate 18 06/14/18 14:27 Blood Pressure 133/71 H 06/14/18 14:27 O2 Sat (%) 99 06/14/18 14:27 O2 Delivery Mode Room Air Allergies/Adverse Reactions: No Known Allergies Allergy (Verified 06/14/18 14:31) Home Medications: Medication Instructions Recorded Ibuprofen [Motrin (*)] 400 mg PO Q2D 03/01/17 Aspirin EC [Aspirin EC 325 mg (*)] 325 mg PO DAILY tab 03/04/17 Atorvastatin Calcium 40 mg PO DAILY #30 tablet 03/04/17 Clopidogrel Bisulfate [Clopidogrel] 75 mg PO DAILY #30 tablet 03/04/17 Lisinopril [Zestril 2.5 mg (*)] 2.5 mg PO DAILY #30 tab 03/04/17 Nitroglycerin [Nitrostat 0.4 mg 0.4 mg SL PRN PRN #1 btl 03/04/17 (*)] Medical Decision Making - Diagnostics EKG Interpretation: 12-LEAD EKG: Please see the full report in [facility]. My interpretation: Sinus rhythm, no ST or T-wave changes ED Course/Re-evaluation: 68-year-old male presenting with complaints that he thinks he might have a bad head cold. He has no lower respiratory symptom complaints. Did have an episode of feeling fatigued and dizzy 6 days ago. He has a history of coronary artery disease. EKG demonstrates no acute ischemic changes. Troponin is negative. Electrolytes are normal. Patient was discharged with the diagnosis of upper respiratory infection. Please see the discharge instructions. Differential Diagnosis: Differential diagnosis of the patient's symptom complex was considered including but not limited to viral upper respiratory infection, sinusitis, bacterial sinusitis, viral pharyngitis, strep pharyngitis, bronchitis, bronchospasm, and influenza. - Data Points Laboratory Results: Laboratory Results 06/14/18 15:34 06/14/18 15:34 Point of Care Test Results: Chemistry 06/14/18 15:37 POC Troponin I 0.00 ng/mL ng/mL (0.00-0.08) Departure - Departure Disposition: Home, Routine, Self-Care Clinical Impression: Nasal congestion Upper respiratory infection Qualifiers: URI type: unspecified URI Qualified Code(s): J06.9 - Acute upper respiratory infection, unspecified Condition: Good Instructions: Rhinosinusitis (ED), Cold Symptoms (ED) Additional Instructions: For your nasal congestion I would recommend obtaining Flonase nasal spray. This is available [email or web address]. Use as directed. You may also use Afrin nasal spray at night to help with breathing. Please be sure that you do not use the Afrin more than 3 days in a row or you may have rebound nasal swelling and congestion. If you obtain oral decongestants, please be sure your using those which are safe for those patients with high blood pressure and cardiac issues. If you develop recurrent dizziness, weakness, developed chest pain or shortness of breath, or have other concerns, please return to the emergency department or seek care urgently. Referrals: Thad Palumbo MD [Primary Care Provider] - As per Instructions
[2018-06-14 16:36] VITALS: BP 130/79
--- NOTE | 2018-06-19 17:31 | CPEKG ---
Test Reason : OPEN Blood Pressure : / mmHG Vent. Rate : 060 BPM Atrial Rate : 060 BPM P-R Int : 144 ms QRS Dur : 088 ms QT Int : 390 ms P-R-T Axes : 046 030 034 degrees QTc Int : 390 ms Sinus rhythm Confirmed by Geeta Winchester ([id number]) on 06/19/2018 5:31:25 PM Referred By: Geeta Winchester Confirmed By:Geeta Winchester
== END 2018-06-14 16:30 | disposition home or self-care (01) ==
DX: R09.81 Nasal congestion (principal); J06.9 Acute upper respiratory infection, unspecified
CPT/HCPCS: 84484-ER